=== PATIENT | male | born 1940 | race Caucasian/White ===

== ENCOUNTER 2024-01-05 17:00 | Inpatient (IN) | payer MEDICARE ==
[~2024-01-05] VITALS: Ht 162.6 cm; Wt 108.0 kg
[~2024-01-05 17:00] MED LIST: FURO-150 PO; METO-395 PO; METO100T7 PO; SULF1TAB49 PO
[2024-01-05 18:05] LABS: BASOPHILS # (AUTO) 0.1 X10'3 (0-0.2); BASOPHILS % (AUTO) 1.1 % (0-1); EOSINOPHILS # (AUTO) 0.3 X10'3 (0-0.9); EOSINOPHILS % (AUTO) 2.6 % (0-6); HEMATOCRIT 38.9 % (42.0-52.0); HEMOGLOBIN 12.8 g/dl (14.0-17.9); LYMPHOCYTES # (AUTO) 1.7 X10'3 (1.1-4.8); LYMPHOCYTES % (AUTO) 16.9 % (21-51); MEAN CORPUSCULAR HGB CONC 32.9 g/dL (33.0-36.5); MEAN CORPUSCULAR VOLUME 94.2 FL (78-98); MEAN PLATELET VOLUME 7.5 FL (7.4-10.4); MONOCYTES # (AUTO) 0.9 X10'3 (0-0.9); MONOCYTES % (AUTO) 9.1 % (2-12); NEUTROPHILS % (AUTO) 70.3 % (42-75); PLATELET COUNT 201 X10'3 (140-440); RED BLOOD COUNT 4.13 X10'6 (4.70-6.10); RED CELL DISTRIBUTION WIDTH 17.4 % (11.5-14.5)
[2024-01-05] MEDS: CefTRIAXone 2gm/D5W 50ml BAG 50 ML IV ONE (18:21)
[2024-01-05] MEDS: diltiazem 5mg/ml 5ml inj. IV ONE (18:21)
[2024-01-05] MEDS: magnesium sulf-water 2g/50mL 50 ML IV ONE (18:58)
[2024-01-05] MEDS: azithromycin 250mg tablet PO ONE (18:58)
[2024-01-05] MEDS ORDERED: magnesium sulf-water 2g/50mL 50 ML IV PRN (19:45)
[2024-01-05] MEDS ORDERED: magnesium sulf-water 4G/100mL 100 ML IV PRN (19:45)
[2024-01-05] MEDS ORDERED: acetaminophen 325mg tablet PO PRN (19:45)
[2024-01-05] MEDS ORDERED: magnesium hydroxide 30ml (MOM) UD suspension PO PRN (19:45)
[2024-01-05] MEDS ORDERED: potassium Cl 20 mEq SR tablet PO PRN ×2 (19:45)
[2024-01-05] MEDS ORDERED: magnesium Cl slow-release 64mg tablet PO PRN (19:45)
[2024-01-05] MEDS ORDERED: potassium Cl 40MEQ/1/2NS 520ml 520 ML IV PRN (19:45)
[2024-01-05] MEDS ORDERED: mag hydrox/Alum hydrox/simeth 30ml oral suspension PO PRN (19:45)
[2024-01-05] MEDS ORDERED: ondansetron/PF 4mg/2ml inj IV PRN (19:45)
[2024-01-05] MEDS ORDERED: morphine 2 MG/ML inj. syringe IV PRN (19:45)
[2024-01-05 19:55] LABS: ALANINE AMINOTRANSFERASE 17 U/L (12-78); ALBUMIN 2.4 G/DL (3.4-5.0); ALBUMIN/GLOBULIN RATIO 0.7 (1.1-1.5); ALKALINE PHOSPHATASE 87 IU/L (46-116); ANION GAP 11 (8-16); ASPARTATE AMINO TRANSFERASE 17 U/L (10-37); BILIRUBIN,TOTAL 1.1 MG/DL (0.1-1.0); BLOOD UREA NITROGEN 26 MG/DL (7-18); BUN/CREATININE RATIO 30.6 (10.0-20.0); CALCIUM 8.8 MG/DL (8.5-10.1); CHLORIDE 108 MMOL/L (99-107); CREATININE 0.85 MG/DL (0.60-1.10); GLUCOSE 231 MG/DL (70-104); POTASSIUM 3.9 MMOL/L (3.5-5.1); SODIUM 143 MMOL/L (135-145); TOTAL CARBON DIOXIDE 24.3 MMOL/L (24-32); TOTAL PROTEIN 5.7 G/DL (6.4-8.2); eCRCL 55 ML/MIN; eGFR 86 ML/MIN
[2024-01-05 20:00] LABS: PRO BRAIN NATRIURETIC PEPTIDE 3755 PG/ML (0-450)
[2024-01-05] MEDS: K and/or MAG REPLACEMENT MC SCH (20:00)
[2024-01-05] MEDS: docusate sod 100mg capsule PO SCH (20:00)
[2024-01-05] MEDS ORDERED: ipratropium/albuterol 3ml nebule NEB PRN (20:35)
[2024-01-05] MEDS: azithromycin/NS 500mg/250ml 250 ML IV ONE (20:39)
[2024-01-05] MEDS: normal saline 1000ml 1,000 ML IV SCH (20:51)
[2024-01-05] MEDS: enoxaparin 40mg/0.4ml syringe SQ SCH (20:57)
[2024-01-05 22:06] VITALS: PULSE 90; RESP 16; O2SAT 98
[2024-01-06] VITALS (9 sets, daily range): BP systolic 112–152; BP diastolic 58–83; PULSE 97–137; RESP 14–24; TEMP 97.4–98.2; O2SAT 97–99
[2024-01-06 02:22] LABS: BASOPHILS # (AUTO) 0.1 X10'3 (0-0.2); BASOPHILS % (AUTO) 1.5 % (0-1); EOSINOPHILS # (AUTO) 0.2 X10'3 (0-0.9); EOSINOPHILS % (AUTO) 2.8 % (0-6); HEMATOCRIT 36.7 % (42.0-52.0); HEMOGLOBIN 12.2 g/dl (14.0-17.9); LYMPHOCYTES # (AUTO) 1.8 X10'3 (1.1-4.8); LYMPHOCYTES % (AUTO) 19.6 % (21-51); MEAN CORPUSCULAR HGB CONC 33.3 g/dL (33.0-36.5); MEAN CORPUSCULAR VOLUME 93.2 FL (78-98); MEAN PLATELET VOLUME 7.7 FL (7.4-10.4); MONOCYTES # (AUTO) 0.8 X10'3 (0-0.9); MONOCYTES % (AUTO) 8.5 % (2-12); NEUTROPHILS # (AUTO) 6.1 X10'3 (1.8-7.7); NEUTROPHILS % (AUTO) 67.6 % (42-75); PLATELET COUNT 188 X10'3 (140-440); RED BLOOD COUNT 3.94 X10'6 (4.70-6.10)
[2024-01-06 02:37] LABS: ALANINE AMINOTRANSFERASE 12 U/L (12-78); ALBUMIN 2.2 G/DL (3.4-5.0); ALBUMIN/GLOBULIN RATIO 0.7 (1.1-1.5); ALKALINE PHOSPHATASE 73 IU/L (46-116); ANION GAP 7 (8-16); ASPARTATE AMINO TRANSFERASE 20 U/L (10-37); BILIRUBIN,TOTAL 1.4 MG/DL (0.1-1.0); BLOOD UREA NITROGEN 25 MG/DL (7-18); BUN/CREATININE RATIO 32.5 (10.0-20.0); CALCIUM 8.6 MG/DL (8.5-10.1); CHLORIDE 110 MMOL/L (99-107); CREATININE 0.77 MG/DL (0.60-1.10); GLUCOSE 142 MG/DL (70-104); MAGNESIUM 1.9 MG/DL (1.5-2.4); POTASSIUM 3.9 MMOL/L (3.5-5.1); SODIUM 143 MMOL/L (135-145); TOTAL CARBON DIOXIDE 25.9 MMOL/L (24-32); TOTAL PROTEIN 5.3 G/DL (6.4-8.2); eCRCL 61 ML/MIN; eGFR > 90 ML/MIN
[2024-01-06] MEDS: CefTRIAXone 2gm/D5W 50ml BAG 50 ML IV SCH (08:05)
[2024-01-06] MEDS ORDERED: APIX5TAB3 PO (08:35)
[2024-01-06] MEDS ORDERED: furosemide 10 MG/1 ML 10ml inj IV SCH (09:30)
[2024-01-06] MEDS: LidoCAINE 2% Topical Jelly 11mL syringe (UROJET) TOP ONE (09:40)
[2024-01-06] MEDS ORDERED: furosemide 20 MG/2 ML vial IV SCH (11:14)
[2024-01-06] MEDS: diltiazem 5mg/ml 5ml inj. IV ONE ×2 (16:10→16:44)
[2024-01-06] MEDS: furosemide 40mg/4ml inj IV SCH (19:43)
[2024-01-06] MEDS: apixaban 5mg tablet PO SCH (19:48)
[2024-01-06] MEDS: metoprolol succinate 25mg (24-HOUR) SR. Tablet PO SCH (19:49)
[2024-01-06] MEDS: morphine 2 MG/ML inj. syringe IV PRN (22:31)
[2024-01-07] VITALS (7 sets, daily range): BP systolic 147–169; BP diastolic 68–111; PULSE 71–114; RESP 18–23; TEMP 97.5–97.7; O2SAT 96–97
[2024-01-07] MEDS: metoprolol tartrate 1mg/ml inj IV ONE ×2 (02:10→05:48)
[2024-01-07 06:59] LABS: BASOPHILS # (AUTO) 0.1 X10'3 (0-0.2); BASOPHILS % (AUTO) 0.7 % (0-1); EOSINOPHILS # (AUTO) 0.2 X10'3 (0-0.9); EOSINOPHILS % (AUTO) 1.6 % (0-6); HEMATOCRIT 37.6 % (42.0-52.0); HEMOGLOBIN 12.7 g/dl (14.0-17.9); LYMPHOCYTES # (AUTO) 1.7 X10'3 (1.1-4.8); LYMPHOCYTES % (AUTO) 15.1 % (21-51); MEAN CORPUSCULAR HEMOGLOBIN 31.6 PG (27.0-31.0); MEAN CORPUSCULAR HGB CONC 33.7 g/dL (33.0-36.5); MEAN CORPUSCULAR VOLUME 93.8 FL (78-98); MEAN PLATELET VOLUME 7.8 FL (7.4-10.4); MONOCYTES # (AUTO) 1.1 X10'3 (0-0.9); MONOCYTES % (AUTO) 9.7 % (2-12); NEUTROPHILS % (AUTO) 72.9 % (42-75); PLATELET COUNT 209 X10'3 (140-440); RED BLOOD COUNT 4.01 X10'6 (4.70-6.10); RED CELL DISTRIBUTION WIDTH 16.8 % (11.5-14.5)
[2024-01-07 07:20] LABS: ALANINE AMINOTRANSFERASE 13 U/L (12-78); ALBUMIN 2.4 G/DL (3.4-5.0); ALBUMIN/GLOBULIN RATIO 0.7 (1.1-1.5); ALKALINE PHOSPHATASE 88 IU/L (46-116); ANION GAP 8 (8-16); ASPARTATE AMINO TRANSFERASE 16 U/L (10-37); BILIRUBIN,TOTAL 1.8 MG/DL (0.1-1.0); BLOOD UREA NITROGEN 24 MG/DL (7-18); BUN/CREATININE RATIO 26.4 (10.0-20.0); CALCIUM 8.6 MG/DL (8.5-10.1); CHLORIDE 107 MMOL/L (99-107); CREATININE 0.91 MG/DL (0.60-1.10); GLUCOSE 171 MG/DL (70-104); MAGNESIUM 1.8 MG/DL (1.5-2.4); POTASSIUM 3.9 MMOL/L (3.5-5.1); SODIUM 142 MMOL/L (135-145); TOTAL CARBON DIOXIDE 26.8 MMOL/L (24-32); eCRCL 52 ML/MIN; eGFR 80 ML/MIN
[2024-01-07] MEDS: VANCOMYCIN 1GM 200ML H20 (PEG) 200 ML IV SCH (09:00)
[2024-01-07] MEDS: diltiazem CD 120mg capsule (once-daily) PO SCH (12:00)
[2024-01-07] MEDS: LidoCAINE 2% Topical Jelly 11mL syringe (UROJET) TOP ONE (18:25)
[2024-01-07] MEDS ORDERED: metoprolol succinate 25mg (24-HOUR) SR. Tablet PO SCH (20:00)
[2024-01-07] MEDS: metoprolol succinate 25mg (24-HOUR) SR. Tablet PO SCH (20:46)
[2024-01-08] VITALS (8 sets, daily range): BP systolic 109–164; BP diastolic 54–88; PULSE 70–101; RESP 16–20; TEMP 97–98.4; O2SAT 92–98
[2024-01-08 07:05] LABS: BASOPHILS # (AUTO) 0.1 X10'3 (0-0.2); BASOPHILS % (AUTO) 0.6 % (0-1); EOSINOPHILS # (AUTO) 0.3 X10'3 (0-0.9); EOSINOPHILS % (AUTO) 2.4 % (0-6); HEMOGLOBIN 12.1 g/dl (14.0-17.9); LYMPHOCYTES # (AUTO) 1.5 X10'3 (1.1-4.8); MEAN CORPUSCULAR HEMOGLOBIN 30.6 PG (27.0-31.0); MEAN CORPUSCULAR HGB CONC 32.6 g/dL (33.0-36.5); MEAN CORPUSCULAR VOLUME 93.7 FL (78-98); MEAN PLATELET VOLUME 7.7 FL (7.4-10.4); MONOCYTES % (AUTO) 8.6 % (2-12); NEUTROPHILS # (AUTO) 8.5 X10'3 (1.8-7.7); NEUTROPHILS % (AUTO) 75.4 % (42-75); PLATELET COUNT 190 X10'3 (140-440); RED BLOOD COUNT 3.95 X10'6 (4.70-6.10); RED CELL DISTRIBUTION WIDTH 16.8 % (11.5-14.5); WHITE BLOOD COUNT 11.2 X10'3 (4.5-11.0)
[2024-01-08 07:42] LABS: ALANINE AMINOTRANSFERASE 7 U/L (12-78); ALBUMIN 2.4 G/DL (3.4-5.0); ALBUMIN/GLOBULIN RATIO 0.7 (1.1-1.5); ALKALINE PHOSPHATASE 81 IU/L (46-116); ANION GAP 8 (8-16); ASPARTATE AMINO TRANSFERASE 18 U/L (10-37); BILIRUBIN,TOTAL 1.6 MG/DL (0.1-1.0); BLOOD UREA NITROGEN 26 MG/DL (7-18); BUN/CREATININE RATIO 23.4 (10.0-20.0); CALCIUM 8.4 MG/DL (8.5-10.1); CHLORIDE 107 MMOL/L (99-107); CREATININE 1.11 MG/DL (0.60-1.10); GLUCOSE 154 MG/DL (70-104); MAGNESIUM 1.7 MG/DL (1.5-2.4); POTASSIUM 3.6 MMOL/L (3.5-5.1); SODIUM 144 MMOL/L (135-145); TOTAL CARBON DIOXIDE 28.8 MMOL/L (24-32); TOTAL PROTEIN 5.7 G/DL (6.4-8.2); eCRCL 42 ML/MIN; eGFR 63 ML/MIN
[2024-01-08] MEDS ORDERED: VANCOMYCIN LEVEL IV ONE (20:30)
[2024-01-09] VITALS (9 sets, daily range): BP systolic 106–151; BP diastolic 47–88; PULSE 73–99; RESP 13–22; TEMP 97–98.1; O2SAT 96–99
[2024-01-09 06:06] LABS: BASOPHILS # (AUTO) 0.1 X10'3 (0-0.2); EOSINOPHILS # (AUTO) 0.3 X10'3 (0-0.9); EOSINOPHILS % (AUTO) 3.6 % (0-6); HEMATOCRIT 34.3 % (42.0-52.0); HEMOGLOBIN 11.4 g/dl (14.0-17.9); LYMPHOCYTES # (AUTO) 2.1 X10'3 (1.1-4.8); LYMPHOCYTES % (AUTO) 21.4 % (21-51); MEAN CORPUSCULAR HEMOGLOBIN 31.1 PG (27.0-31.0); MEAN CORPUSCULAR HGB CONC 33.3 g/dL (33.0-36.5); MEAN CORPUSCULAR VOLUME 93.2 FL (78-98); MEAN PLATELET VOLUME 7.6 FL (7.4-10.4); MONOCYTES # (AUTO) 0.9 X10'3 (0-0.9); MONOCYTES % (AUTO) 8.9 % (2-12); NEUTROPHILS # (AUTO) 6.3 X10'3 (1.8-7.7); NEUTROPHILS % (AUTO) 65.1 % (42-75); PLATELET COUNT 189 X10'3 (140-440); RED BLOOD COUNT 3.67 X10'6 (4.70-6.10); RED CELL DISTRIBUTION WIDTH 16.1 % (11.5-14.5); WHITE BLOOD COUNT 9.6 X10'3 (4.5-11.0)
[2024-01-09 06:22] LABS: ALANINE AMINOTRANSFERASE 10 U/L (12-78); ALBUMIN/GLOBULIN RATIO 0.7 (1.1-1.5); ALKALINE PHOSPHATASE 75 IU/L (46-116); ANION GAP 4 (8-16); ASPARTATE AMINO TRANSFERASE 18 U/L (10-37); BILIRUBIN,TOTAL 1.4 MG/DL (0.1-1.0); BLOOD UREA NITROGEN 23 MG/DL (7-18); BUN/CREATININE RATIO 22.8 (10.0-20.0); CHLORIDE 105 MMOL/L (99-107); CREATININE 1.01 MG/DL (0.60-1.10); GLUCOSE 135 MG/DL (70-104); MAGNESIUM 1.5 MG/DL (1.5-2.4); SODIUM 142 MMOL/L (135-145); TOTAL CARBON DIOXIDE 32.6 MMOL/L (24-32); TOTAL PROTEIN 4.9 G/DL (6.4-8.2); eCRCL 46 ML/MIN; eGFR 71 ML/MIN
[2024-01-09] MEDS ORDERED: potassium Cl 20 mEq SR tablet PO PRN (06:35)
[2024-01-09] MEDS ORDERED: potassium Cl 40MEQ/1/2NS 520ml 520 ML IV PRN (06:35)
[2024-01-09] MEDS: K and/or MAG REPLACEMENT MC SCH (08:00)
[2024-01-09] MEDS: lactulose 20gm/30ml cup PO SCH (08:20)
[2024-01-09] MEDS: spironolactone 50 MG tablet PO SCH (08:22)
[2024-01-09] MEDS: potassium Cl 20 mEq SR tablet PO PRN (08:23)
[2024-01-09 17:13] LABS: HIV-1 RNA Non Reactive (Non Reactive); HIV-2 RNA Non Reactive (Non Reactive)
[2024-01-09] MEDS: lactose-reduced food (Ensure High Protein) 237ml bottle PO SCH (17:30)
[2024-01-10 02:00] VITALS: BP 126/60; PULSE 87; RESP 18; TEMP 97.6; O2SAT 96
[2024-01-10 07:00] VITALS: BP 138/46; PULSE 80; RESP 18; TEMP 97.8; O2SAT 96
[2024-01-10 07:18] LABS: BASOPHILS # (AUTO) 0.1 X10'3 (0-0.2); BASOPHILS % (AUTO) 0.9 % (0-1); EOSINOPHILS # (AUTO) 0.3 X10'3 (0-0.9); HEMATOCRIT 34.2 % (42.0-52.0); HEMOGLOBIN 11.7 g/dl (14.0-17.9); LYMPHOCYTES # (AUTO) 1.9 X10'3 (1.1-4.8); LYMPHOCYTES % (AUTO) 22.1 % (21-51); MEAN CORPUSCULAR HEMOGLOBIN 31.5 PG (27.0-31.0); MEAN CORPUSCULAR HGB CONC 34.1 g/dL (33.0-36.5); MEAN CORPUSCULAR VOLUME 92.5 FL (78-98); MEAN PLATELET VOLUME 7.9 FL (7.4-10.4); MONOCYTES % (AUTO) 11.3 % (2-12); NEUTROPHILS # (AUTO) 5.4 X10'3 (1.8-7.7); NEUTROPHILS % (AUTO) 61.7 % (42-75); PLATELET COUNT 218 X10'3 (140-440); RED BLOOD COUNT 3.69 X10'6 (4.70-6.10); RED CELL DISTRIBUTION WIDTH 16.1 % (11.5-14.5); WHITE BLOOD COUNT 8.7 X10'3 (4.5-11.0)
[2024-01-10 07:47] LABS: ALANINE AMINOTRANSFERASE 9 U/L (12-78); ALBUMIN 2.3 G/DL (3.4-5.0); ALBUMIN/GLOBULIN RATIO 0.7 (1.1-1.5); ALKALINE PHOSPHATASE 83 IU/L (46-116); ANION GAP 7 (8-16); ASPARTATE AMINO TRANSFERASE 20 U/L (10-37); BILIRUBIN,TOTAL 1.4 MG/DL (0.1-1.0); BLOOD UREA NITROGEN 22 MG/DL (7-18); BUN/CREATININE RATIO 22.2 (10.0-20.0); CALCIUM 8.2 MG/DL (8.5-10.1); CHLORIDE 104 MMOL/L (99-107); CREATININE 0.99 MG/DL (0.60-1.10); GLUCOSE 141 MG/DL (70-104); POTASSIUM 3.7 MMOL/L (3.5-5.1); SODIUM 142 MMOL/L (135-145); TOTAL CARBON DIOXIDE 31.5 MMOL/L (24-32); TOTAL PROTEIN 5.4 G/DL (6.4-8.2); eCRCL 47 ML/MIN; eGFR 72 ML/MIN
[2024-01-10 08:00] VITALS: RESP 20
[2024-01-10 11:00] VITALS: BP 114/61; PULSE 84; RESP 22; TEMP 96.9; O2SAT 96
[2024-01-10 12:36] VITALS: BP 101/57; PULSE 81; RESP 16; O2SAT 99
[2024-01-10 12:55] VITALS: BP 95/53; PULSE 81; RESP 16; O2SAT 99
[2024-01-10 14:01] LABS: GLUCOSE,BODY FLUID 186 MG/DL; LDH,BODY FLUID 60 U/L
[2024-01-10 14:04] LABS: PLEURAL FLUID PH 7.555 (7.63-7.65)
[2024-01-10 14:20] LABS: BFSOURCE RIGHT PLEURAL FLD
[2024-01-10 14:21] LABS: BF RBC COUNT 2760 /CU MM; BF WBC COUNT 120 /CU MM (0-1000); BFAPPEAR CLOUDY; BFCOLOR YELLOW; BFVOLUME 53 ML; LYMPHOCYTES,BODY FLUID 65 %; MONOCYTES,BODY FLUID 21 %; NEUTROPHILS,BODY FLUID 14 %
[2024-01-10 14:22] LABS: BF MESOTHELIAL CELLS FEW
[2024-01-10 14:33] LABS: TOTAL PROTEIN,BODY FLUID < 2.0 G/DL
[2024-01-10 14:56] LABS: BFSOURCE RIGHT PLEURAL FLD
[2024-01-11 05:21] LABS: HEPATITIS C VIRUS ANTIBODY Non Reactive (Non Reactive)
== END 2024-01-10 16:11 | DRG 193 ==
LOC: ER 17:01 → ED HOLD 19:13 → SUR 3N 01-06 11:12 → ORTHO 4S 01-06 13:20 → PCU 3S 01-06 16:00
PROVIDERS: ADMIT Internal Medicine Critical Care Medicine; ATTEND Internal Medicine
PROC: 0W9930Z Drainage of Right Pleural Cavity with Drainage Device, Percutaneous Approach (ICD-10-PCS; principal; 2024-01-10)
DX: J18.9 Pneumonia, unspecified organism (principal); I50.33 Acute on chronic diastolic (congestive) heart failure; Z59.00 Homelessness unspecified; J91.8 Pleural effusion in other conditions classified elsewhere; J98.11 Atelectasis; I69.951 Hemiplegia and hemiparesis following unspecified cerebrovascular disease affecting right dominant side; S37.39XA Other injury of urethra, initial encounter; T83.83XA Hemorrhage due to genitourinary prosthetic devices, implants and grafts, initial encounter; I11.0 Hypertensive heart disease with heart failure; L40.9 Psoriasis, unspecified; K70.30 Alcoholic cirrhosis of liver without ascites; Z20.822 Contact with and (suspected) exposure to COVID-19; E86.0 Dehydration; I48.0 Paroxysmal atrial fibrillation; D64.9 Anemia, unspecified; E87.6 Hypokalemia; R31.9 Hematuria, unspecified; X58.XXXA Exposure to other specified factors, initial encounter; Y93.89 Activity, other specified; Y92.89 Other specified places as the place of occurrence of the external cause; Y99.8 Other external cause status; R16.0 Hepatomegaly, not elsewhere classified; Y95 Nosocomial condition
CPT/HCPCS: 32555; 36415; 71045; 71250; 76700; 80053; 80202; 82595; 82945; 83605; 83615; 83735; 83880; 83986; 84132; 84157; 84484; 85025; 86803; 87040; 87070; 87077; 87081; 87186; 87502; 87503; 87522; 87535; 87538; 87811; 89051; 93005; 93308; 93971; 94760; 96365; 96367; 97110; 97116; 97161; 97530; 97535; 99285; A4314; A4340; A5200; A6258; A6590; G0378; J0696; J1650; J1940; J2270; J3372; J3490; J7030; J7040

== ENCOUNTER 2024-02-03 13:22 | Emergency (ER) | payer MEDICARE ==
[~2024-02-03] VITALS: Ht 162.6 cm; Wt 98.0 kg
[~2024-02-03 13:22] MED LIST changes: +APIX5TAB3 PO; -FURO-150 PO; -METO-395 PO; -SULF1TAB49 PO
[2024-02-03 13:31] VITALS: BP 95/46; PULSE 60; RESP 16; TEMP 98.6; O2SAT 61
== END 2024-02-03 17:33 ==
LOC: ER 13:23
DX: R73.9 Hyperglycemia, unspecified (principal); I48.91 Unspecified atrial fibrillation; Z79.899 Other long term (current) drug therapy
CPT/HCPCS: 82948; 99283; 99285